=== PATIENT | female | born 1970 | race Caucasian/White ===

== ENCOUNTER 2017-02-09 02:26 | Emergency (ER) | payer SELFPAY ==
[~2017-02-09] VITALS: Ht 170.2 cm; Wt 96.7 kg
[2017-02-09 03:05] LABS: HEMATOCRIT 41.8 % (36.0-46.0); MCHC 33.7 G/DL (30.0-36.0); MCV 94.8 FL (83-99); MEAN PLAT.VOLUME 10.8 uM^3 (9.5-12.4); PLATELET COUNT 210 K/uL (156-360); RBC DIS.WIDTH-CV 13.9 % (11.8-14.6); RBC DIS.WIDTH-SD 48.8 % (39-53); RED BLOOD COUNT 4.41 M/uL (3.80-5.20); WHITE BLOOD COUNT 9.7 K/uL (4.1-10.2)
[2017-02-09 03:14] LABS: D-DIMER ELISA < 150.00 ng/mLDDU (<230)
[2017-02-09 03:17] LABS: CHLORIDE 104 mEq/L (99-109); POTASSIUM 3.7 mEq/L (3.7-5.4); SODIUM 138 mEq/L (136-147)
[2017-02-09 03:20] LABS: GLUCOSE 94 mg/dL (70-99)
[2017-02-09 03:21] LABS: ANION GAP 14 MEQ/L (2-14); TOTAL BILIRUBIN 0.2 mg/dL (0.0-1.0)
[2017-02-09 03:23] LABS: ALKALINE PHOSPHATASE 60 IU/L (3-129); SERUM ETHYL ALCOHOL 214 mg/dL
[2017-02-09 03:24] LABS: GFR ESTIMATE (CALCULATED) > 59 mL/min/; TROP-I INTERPRETATION NEGATIVE; TROPONIN-I < 0.01 ng/mL (0.0-0.30)
[2017-02-09 03:25] LABS: DIRECT BILIRUBIN 0.1 mg/dL (0.0-0.3); UREA NITROGEN (BUN) 12 mg/dL (9-23)
[2017-02-09 03:27] LABS: LIPASE 63 U/L (1.0-51.0)
[2017-02-09] MEDS ORDERED: ZOFRAN4 MG PO (05:08)
[2017-02-09] MEDS ORDERED: PERCOCET 5/31 TABLET PO (05:08)
[2017-02-09 05:29] VITALS: BP 101/56
== END 2017-02-09 05:30 | disposition home or self-care (01) ==
LOC: EDBD 02:26 → EME 02:26
DX: K85.90 Acute pancreatitis without necrosis or infection, unspecified (principal); F10.10 Alcohol abuse, uncomplicated; R07.89 Other chest pain; F41.9 Anxiety disorder, unspecified; F32.9 Major depressive disorder, single episode, unspecified; Z90.49 Acquired absence of other specified parts of digestive tract; F17.200 Nicotine dependence, unspecified, uncomplicated
CPT/HCPCS: 71020; 74177; 80048; 80076; 83690; 84484; 85027; 85379; 93005; 99281; 99285; G0480; J2270; J2405; J3010; S0028